=== PATIENT | male | born 1960 | race Caucasian/White ===

== ENCOUNTER 2018-01-31 10:40 | Day surgery (SDC) | payer OTHER, SELFPAY ==
[2018-01-24 10:45] VITALS: BMI 28.9
[2018-01-31] VITALS (8 sets, daily range): BP systolic 111–166; BP diastolic 64–98; PULSE 51–79; RESP 14–16; TEMP 36.1–36.7; O2SAT 16–100; BMI 28.9
[2018-01-31] MEDS: LACTATED RINGERS 1,000 ML 100 ML IV (12:11)
[2018-01-31] MEDS: CEFAZOLIN 2 GM/100 ML FROZ.PIGGY IV (13:04)
--- NOTE | 2018-01-31 13:05 | PM.PREOP ---
Pre-operative Note Interval Note Pre-op Check: Yes History & Physical Reviewed by Physician Changes: No
--- NOTE | 2018-01-31 13:20 | SUR.OPER ---
Supine on padded OR bed, head on pillow, arms secured on padded arm boards at <90 degrees abduction, legs uncrossed, safety belt at thigh, tape over blanket over lower legs.
[2018-01-31] MEDS: SODIUM CHLORIDE IRRIG SOLUTION 1,000 ML, CEFAZOLIN VIAL 1 GM IRR (13:31)
[2018-01-31] MEDS: LIDOCAINE 1% W/EPI INJ 20 ML INJ (13:32)
[2018-01-31] MEDS: BUPIVACAINE 0.5% (PF) VIAL 30 ML INJ (13:33)
--- NOTE | 2018-01-31 14:02 | PM.OP.1 ---
Operative Date/Time/Diagnoses Date of procedure: 01/31/18 Time of procedure: 14:02 Pre-op diagnosis: Left inguinal hernia Post-op diagnosis: same Procedure & Clinicians Procedure: Left inguinal hernia repair Same procedure as scheduled: Yes Indications: Painful and enlarging left inguinal hernia Surgeon: Hazel Kumar Click Yes if Unassisted: Yes Anesthesia Type: General (Anuj) and Local Operative Notes Findings: Large indirect left inguinal hernia Closure Type: primary Specimen(s): none sent Implants & Drains: Large Pro Loop plug and patch Estimated Blood Loss (mL): 10 Procedure in detail: After obtaining informed consent the patient was brought to the operating room and placed in the supine position on the operating table. Following successful induction of general endotracheal anesthesia, appropriate padding of all bony prominences, and a placement of appropriate monitors, the left groin is prepped and draped in a standard surgical fashion. A timeout was held per protocol. We began the procedure by infiltrating a mixture of local anesthetics medial to the anterior superior iliac spine on the left. Following this, an incision was fashioned in the left groin superior and lateral to the left pubic tubercle. This area was infiltrated with local anesthetic to create a field block. A skin incision was created here and carried down through the skin and subcutaneous tissue to reveal Nora's fascia below. Nora's fascia was divided sharply revealing the external oblique aponeurosis below. More local anesthetic was infiltrated in the aponeurosis and it was opened in the direction of its fibers. The spermatic cord and its contents were surrounded and retracted gently using a Demain drain. The hernia sac was identified in the superior medial position and carefully dissected free from the cord structures. The ileoinguinal nerve was identified stretched across the hernia sac itself. Fraying of the fibers in the distal portion of the nerve was noted. Due to this injury, we elected to divide the ilioinguinal nerve. This was done by clipping each end, tying it with a Vicryl suture, and dividing it centrally. The hernia sac was carefully placed back into the abdominal cavity without injury. A large portion of PROloop mesh was chosen for the repair. The plug was soaked in Ancef solution and deployed into the defect in the internal ring. This was sewn into place with interrupted Vicryl sutures in 2 positions. The overlying mesh layer was sewn to the pubic tubercle with an air knot of Vicryl suture. The lateral leaflets were then carefully placed around the spermatic cord and sewn together with another suture. Tags of the overlying mesh were then tucked under the external oblique aponeurosis. The wound was checked for hemostasis and irrigated with Ancef-containing solution. The edges of the external oblique aponeurosis were approximated and closed with a running Vicryl suture. The wound was irrigated once again and Nora's fascia was closed with a running suture. Monocryl sutures were placed in the skin. All sponge, needle, and instrument counts were correct at the conclusion of the case. The patient was allowed to awaken from anesthesia without difficulty and taken to the post anesthesia care unit in good condition. Complications: none Condition: stable Disposition: PACU Plan for aftercare: 1. Discharge to home 2. Follow up with me in 2 weeks
[2018-01-31] MEDS: fentaNYL 100 MCG/2 ML INJ 50 MCG IV (14:09)
[2018-01-31] MEDS: OXYCODONE/ACETAMINOPHEN 5/325 TABLET 1 TAB PO (14:24)
== END 2018-01-31 15:00 ==
LOC: OR 10:47
PROVIDERS: Visit Provider Surgery
PROC: (CPT 49505; principal; 2018-01-31 12:30)
DX: K40.90 Unilateral inguinal hernia, without obstruction or gangrene, not specified as recurrent (principal)
CPT/HCPCS: 49505; C1781; J0690; J1100; J2250; J2405; J2704; J3010

== ENCOUNTER 2021-07-26 13:28 | Emergency (ER) | payer OTHER, SELFPAY ==
[2021-07-26 13:33] VITALS: BP 130/89; PULSE 55; RESP 18; TEMP 36.8; O2SAT 100; BMI 29.8
--- NOTE | 2021-07-26 13:42 | DI.RAD.S_ITS ---
PROCEDURE: XR FOOT RT MIN 3V INDICATIONS: Right ankle pain, swelling and redness TECHNIQUE: 3 views of the foot were acquired. COMPARISON: None. FINDINGS: Bones: No acute, displaced fracture. Lzjh-[id number]-[id number] arthrosis of the 1st MTP and tarsometatarsal articulations. 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 Mild osteophytosis of the midfoot. Small calcaneal enthesophytes.. Soft tissues: No tibiotalar joint effusion. Vascular calcifications are seen. IMPRESSION: No acute osseous abnormality. Dictated by: Thomas Mooney M.D. on 07/26/2021 at 14:26 Approved by: Thomas Mooney M.D. on 07/26/2021 at 14:30
--- NOTE | 2021-07-26 13:42 | DI.RAD.S_ITS ---
PROCEDURE: XR ANKLE RT MIN 3V INDICATIONS: Right ankle pain, swelling and redness TECHNIQUE: 3 views of the ankle were acquired. COMPARISON: None. FINDINGS: Bones: No acute, displaced fracture. Ankle mortise is normally aligned. Ossific lesions about the medial and lateral malleoli, likely reflecting remote traumatic injuries. Os trigonum. Small calcaneal enthesophytes. Soft tissues: Trace tibiotalar joint effusion. Diffuse lower extremity edema. IMPRESSION: No acute, displaced fracture Dictated by: Thomas Mooney M.D. on 07/26/2021 at 14:30 Approved by: Thomas Mooney M.D. on 07/26/2021 at 14:32
--- NOTE | 2021-07-26 14:18 | DI.US.S_ITS ---
PROCEDURE: US PERIPH VENOUS LOW EXTREM RT INDICATIONS: EDEMA TECHNIQUE: Real-time imaging, as well as color and pulse Doppler interrogation, were performed of the lower extremity deep veins from the inguinal ligament to the popliteal fossa. COMPARISON: None. FINDINGS: The common femoral, femoral and popliteal veins are normally compressible, and free of intraluminal thrombus. Color and pulse Doppler demonstrate normal phasic intraluminal flow. There is normal augmentation response to distal compression maneuver. IMPRESSION: No evidence of DVT. Dictated by: Thomas Mooney M.D. on 07/26/2021 at 14:25 Approved by: Thomas Mooney M.D. on 07/26/2021 at 14:26
[2021-07-26 17:03] LABS: Add Manual Diff / Slide Review NO; Basophils Absolute Auto 0 /uL (0-100); Basophils Percent Auto 0.5 % (0-2); Eosinophils Absolute Auto 100 /uL (0-450); Eosinophils Percent Auto 1.4 % (2-4); Hematocrit 43.3 % (41-53); Hemoglobin 15.2 g/dL (13.5-17.5); Lymphocytes Absolute Auto 1500 /uL (1100-4500); Lymphocytes Percent Auto 21.1 % (25-40); Mean Corpuscular HGB Conc 35.1 % (30-36); Mean Corpuscular Hemoglobin 31.3 PG (26-34); Mean Corpuscular Volume 89.1 fL (80-100); Monocytes Absolute Auto 600 /uL (0-900); Monocytes Percent Auto 8.7 % (3-14); Neutrophils Absolute Auto 4800 /uL (1500-7000); Neutrophils Percent Auto 68.3 % (50-75); Platelet Count 252 X10^3/uL (150-400); Red Blood Cell Count 4.86 X10^6/uL (4.5-5.9); Red Cell Distribution Width 13.2 % (11.6-14.8); White Blood Cell Count 7.1 X10^3/uL (4.5-11.0)
[2021-07-26 17:17] LABS: Alanine Aminotransferase 27 IU/L (<50); Albumin 4.3 g/dL (3.5-5.0); Albumin Globulin Ratio 1.1 (1.0-2.8); Alkaline Phosphatase 88 U/L (38-126); Aspartate Aminotransferase 25 IU/L (17-59); BUN Creatinine Ratio 14.5 (6-22); Bilirubin Total 0.7 mg/dL (0.2-1.3); Blood Urea Nitrogen 12 mg/dL (9-20); Calcium 9.4 mg/dL (8.4-10.2); Carbon Dioxide 26 mmol/L (22-32); Chloride 103 mmol/L (98-107); Estimated Glomerular Filt Rate > 60.0 mL/min (>60); Globulin 3.9 g/dL (1.7-4.1); Glucose 104 mg/dL (70-100); HEMOLYSIS < 15 (0-50); Potassium 3.7 mmol/L (3.4-5.1); Sodium 137 mmol/L (137-145); Total Protein 8.2 g/dL (6.3-8.2); Uric Acid 5.4 mg/dL (3.5-8.5)
[2021-07-26 17:20] LABS: Erythrocyte Sedimentation Rate 44 MM/HR (0-15)
--- NOTE | 2021-07-26 19:05 | ED_ITS ---
HPI - Extremity Problem General Chief complaint: Extremity Problem,Nontraumatic Stated complaint: Poss blood clot in rt leg or gout- sent by [facility] Time Seen by Provider: 07/26/21 17:34 Source: patient Mode of arrival: Ambulatory Limitations: no limitations History of Present Illness HPI Narrative: This is a 61-year-old male who is sent by the walk-in clinic for concern for infection, blood clot or gout. Patient states he has had 4 days initially of some swelling followed by of redness that started over the talus in his right leg and since spread to the medial ankle and heel and is now extending up his leg and towards his toes. He states pain has also started to spread up his leg. He has had increasing swelling. Patient states he does have pain with ambulation. He has had some swelling in the past but not for this long and not the sort of symptoms. Patient did have fevers and chills for 2 nights. He denies any chest pain or shortness of breath. No nausea or vomiting. No other GI or urinary symptoms other than some mild constipation. He is not on a daily medications. He denies any prior surgeries. 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 He quit smoking at least 3 years ago, he does drink alcohol daily, no illicit. He is accompa nied by his . He does note he had a rash on the back of his calf several weeks ago which has not resolved but has not had any redness or irritation and appears to be healing. Related Data Previous Rx's Medication Instructions Recorded ondansetron 4 mg disintegrating 4 mg PO QID PRN #14 tab 01/31/18 tablet (Zofran ODT) oxycodone-acetaminophen 7.5 mg-325 1 tab PO Q6H PRN #20 tab MDD 4 01/31/18 mg tablet (Percocet) sulfamethoxazole 800 1 tab PO Q12H #20 tab 07/26/21 mg-trimethoprim 160 mg tablet (Bactrim DS) Allergies Allergy/AdvReac Type Severity Reaction Status Date / Time No Known Drug Allergies Allergy Verified 07/26/21 13:39 Review of Systems Review of Systems ROS Unobtainable: All systems reviewed & are unremarkable except as noted in HPI and below Patient History Family History Father Hypertension Diabetes mellitus Heart disease Social History marital status: household members: spouse, children and adopted family occupational status: employed Smoking Status: Former smoker alcohol intake: current substance use type: does not use Smoking Status: Former smoker alcohol intake frequency: 3 or more drinks per day Alcohol type: beer Substance Use Type: does not use Exam Narrative Exam Narrative: GENERAL: Alert and oriented x three, male in mild distress. HEENT: Head normocephalic, atraumatic, EOMI, pupils reactive, face symmetric, moist mucous membranes NECK: Supple, full range of motion CARDIOVASCULAR: Regular rate and rhythm without murmurs, rubs or gallops. RESPIRATORY: Breath sounds equal bilaterally, no wheezes rales or rhonchi. ABDOMEN: Soft, nontender. Normoactive bowel sounds all 4 quadrants. No guarding or rebound, rigidity, no mass EXTREMITIES: Normal range of motion, no clubbing. Positive right foot and ankle edema tracking [address] up the calf. Patient has erythema over the medial heel extending over the medial malleolus and dorsum of the foot and up 3rd of the calf. Patient has mild tenderness to palpation. No fluctuance or induration appreciated. Patient is neurovascularly intact. Cap refill less th an 2 seconds in all 5 toes. Patient has normal sensation to light touch. 2+ dorsalis pedis. NEUROLOGICAL: Cranial nerves II through XII grossly intact. Moving all extremities SKIN: Warm, dry, no petechiae, no rashes or lesions. Initial Vital Signs Initial Vital Signs: Vital Signs Temperature 98.3 F 07/26/21 13:33 Pulse Rate 55 L 07/26/21 13:33 Respiratory Rate 18 07/26/21 13:33 Blood Pressure 130/89 07/26/21 13:33 Pulse Oximetry 100 07/26/21 13:33 Course Orders Ordered: Discontinued Medications Trimethoprim/Sulfamethoxazole (Trimeth/Sulfa 160/800 (Ds) Tablet) 1 tab PO NOW ONE Stop: 07/26/21 19:18 Last Admin: 07/26/21 19:28 Dose: 1 tab Documented by: MARIA L Vital Signs Vital signs: Vital Signs - 8 hr 07/26/21 13:33 Temperature 98.3 F Pulse Rate 55 L Respiratory Rate 18 Blood Pressure 130/89 Pulse Oximetry 100 MDM - Extremity (Nontraumatic) Lab Data Result diagrams: 07/26/21 16:55 07/26/21 16:55 Labs: Lab Results 07/26/21 07/26/21 Range/Units 16:55 16:55 WBC 7.1 (4.5-11.0) X10^3/uL RBC 4.86 (4.5-5.9) X10^6/uL Hgb 15.2 (13.5-17.5) g/dL Hct 43.3 (41-53) % MCV 89.1 (80-100) fL MCH 31.3 (26-34) PG MCHC 35.1 (30-36) % RDW 13.2 (11.6-14.8) % Plt Count 252 (150-400) X10^3/uL Neut % (Auto) 68.3 (50-75) % Lymph % (Auto) 21.1 L (25-40) % Morton % (Auto) 8.7 (3-14) % Eos % (Auto) 1.4 L (2-4) % Baso % (Auto) 0.5 (0-2) % Neut # (Auto) 4800 (0698-6269) /uL Lymph # (Auto) 1500 (3629-8362) /uL Morton # (Auto) 600 (0-900) /uL Eos # (Auto) 100 (0-450) /uL Baso # (Auto) 0 (0-100) /uL ESR 44 H (0-15) MM/HR Sodium 137 (137-145) mmol/L Potassium 3.7 (3.4-5.1) mmol/L Chloride 103 (98-107) mmol/L Carbon Dioxide 26 (22-32) mmol/L BUN 12 (9-20) mg/dL Creatinine 0.83 (0.66-1.25) mg/dL Estimated GFR > 60.0 (>60) mL/min BUN/Creatinine Ratio 14.5 (6-22) Glucose 104 H (70-100) mg/dL Uric Acid 5.4 (3.5-8.5) mg/dL Calcium 9.4 (8.4-10.2) mg/dL Total Bilirubin 0.7 (0.2-1.3) mg/dL AST 25 (17-59) IU/L ALT 27 (<50) IU/L Alkaline Phosphatase 88 (38-126) U/L Total Protein 8.2 (6.3-8.2) g/dL Albumin 4.3 (3.5-5.0) g/dL Globulin 3.9 (1.7-4.1) g/dL Albumin/Globulin Ratio 1.1 (1.0-2.8) Imaging Data US - DVT: Radiologist's Impression: Launch?Image [address] [address] Ultrasound Report Signed Patient: Real Brock MR#: [id number] : 1960 Acct:[id number] Age/Sex: 61 / M Date of Service: 07/26/21 Loc: ED Accession Number: [id number] ?? Procedure: US periph venous low extrem rt Ordering Provider: Shereen Chatman D.O. PROCEDURE:? US PERIPH VENOUS LOW EXTREM RT ? INDICATIONS:? EDEMA ? TECHNIQUE:? Real-time imaging, as well as color and pulse Doppler interrogation, were performed of the lower extremity deep veins from the inguinal ligament to the popliteal fossa.? ? COMPARISON:? None. ? FINDINGS:? The common femoral, femoral and popliteal veins are normally compressible, and free of intraluminal thrombus.? Color and pulse Doppler demonstrate normal phasic intraluminal flow.? There is normal augmentation response to distal compression maneuver. ? ? IMPRESSION:? No evidence of DVT. ? ? Dictated by: Thomas Mooney M.D. on 07/26/2021 at 14:25 ? ? Approved by: Thomas Mooney M.D. on 07/26/2021 at 14:26 Extremity x-ray #1: Radiologist's Impression: [address] [address] XRay Report Signed Patient: Real Brock MR#: [id number] : 1960 Acct:[id number] Age/Sex: 61 / M Date of Service: 07/26/21 Loc: ED Accession Number: [id number] ?? Procedure: XR ankle RT min 3V Ordering Provider: Shereen Chatman D.O. PROCEDURE:? XR ANKLE RT MIN 3V ? INDICATIONS:? Right ankle pain, swelling and redness ? TECHNIQUE:? 3 views of the ankle were acquired.? ? COMPARISON:? None. ? FINDINGS:? ? Bones:? No acute, displaced fracture.? Ankle mortise is normally aligned.? Ossific lesions about the medial and lateral malleoli, likely reflecting remote traumatic injuries.? Os trigonum.? Small calcaneal enthesophytes. ? Soft tissues:? Trace tibiotalar joint effusion.? Diffuse lower extremity edema. ? IMPRESSION:? No acute, displaced fracture ? Dictated by: Thomas Mooney M.D. on 07/26/2021 at 14:30 ? ? Approved by: Thomas Mooney M.D. on 07/26/2021 at 14:32?? Extremity x-ray #2: Radiologist's Impression: Real Brock??61??M??1960 ? Allergy/Adv: No Known Drug Allergies (More??) Close Vascular Ultrasound (Signed) Thomas Mooney - 07/26/21 Foot X-Ray (Signed) Thomas Mooney - 07/26/21 Ankle X-Ray (Signed) Thomas Mooney - 07/26/21 Launch?[place] [address] XRay Report Signed Patient: Real Brock MR#: [id number] : 1960 Acct:[id number] Age/Sex: 61 / M Date of Service: 07/26/21 Loc: ED Accession Number: [id number] ?? Procedure: XR foot RT min 3V Ordering Provider: Shereen Chatman D.O. PROCEDURE:? XR FOOT RT MIN 3V ? INDICATIONS:? Right ankle pain, swelling and redness ? TECHNIQUE:? 3 views of the foot were acquired.? ? COMPARISON:? None. ? FINDINGS:? ? Bones:? No acute, displaced fracture.? Oxrz-uh-aqsmbyki arthrosis of the 1st MTP and tarsometatarsal articulations.? 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 Mild osteophytosis of the midfoot. Small calcaneal enthesophytes..? ? Soft tissues:? No tibiotalar joint effusion.? Vascular calcifications are seen.? ? ? IMPRESSION:? No acute osseous abnormality. ? ? Dictated by: Thomas Mooney M.D. on 07/26/2021 at 14:26 ? ? Approved by: Thomas Mooney M.D. on 07/26/2021 at 14:30?? MDM Narrative Medical decision making narrative: This is a 61 male who comes to the emergency department for redness, swelling from the walk-in clinic. Concern for DVT versus gout or infection. Patient's labs show elevated ESR, DVT ultrasound is negative with x-ray showing no acute changes. Patient's exam seems more consistent with cellulitis although he does drink alcohol regularly. Plans to take ibuprofen regularly for pain management and plan to start oral antibiotics. Return precautions discussed. Patient does not appear to be septic. All questions answered. Discharge Plan Departure Patient Disposition: Home Clinical Impression: Cellulitis Instructions: DI for Cellulitis -- Adult Activity Restrictions/Additional Instructions: Follow-up in the next 2-3 days for recheck if you have not had improvement. I would recommend decreasing your alcohol intake. Take antibiotics until completely gone. You may take ibuprofen up to 600 mg every 6 hours and/or Tylenol up to a 1000 mg every 8 hours. Prescription sent to [facility] in [place]. Please return for fevers, worsening redness, swelling, drainage or other new or concerning changes in her leg. Prescriptions: New sulfamethoxazole-trimethoprim [Bactrim DS] 800-160 mg tablet 1 tab PO Q12H Qty: 20 0RF No Action oxycodone-acetaminophen [Percocet] 7.5-325 mg tablet 1 tab PO Q6H MDD 4 PRN (Reason: pain) Qty: 20 0RF ondansetron [Zofran ODT] 4 mg tablet,disintegrating 4 mg PO QID PRN (Reason: nausea and vomiting) Qty: 14 0RF
[2021-07-26] MEDS: TRIMETH/SULFA 160/800 (DS) TABLET 1 TAB PO (19:28)
== END 2021-07-26 19:34 | disposition home or self-care (01) ==
PROVIDERS: Emergency Medicine; Emergency Provider Emergency Medicine
DX: L03.115 Cellulitis of right lower limb (principal)
CPT/HCPCS: 36415; 73610; 73630; 80053; 84550; 85025; 85651; 93971; 99283; 99284

== ENCOUNTER → 2024-11-13 09:06 | Outpatient (CLI) | payer OTHER, SELFPAY ==
[2024-11-13 09:52] LABS: Hematocrit 46.2 % (41-53); Hemoglobin 16.1 g/dL (13.5-17.5); Mean Corpuscular Hemoglobin 31.7 PG (26-34); Mean Corpuscular Volume 90.8 fL (80-100); Platelet Count 211 X10^3/uL (150-400); Red Blood Cell Count 5.09 X10^6/uL (4.5-5.9); Red Cell Distribution Width 13.1 % (11.6-14.8); White Blood Cell Count 4.1 X10^3/uL (4.5-11.0)
[2024-11-13 09:57] LABS: Hemoglobin A1C% w Est Avg Glu 7.6 % (4.0-6.0)
[2024-11-13 10:13] LABS: Alanine Aminotransferase 31 IU/L (<50); Albumin 4.7 g/dL (3.5-5.0); Albumin Globulin Ratio 1.6 (1.0-2.8); Alkaline Phosphatase 82 U/L (38-126); Aspartate Aminotransferase 26 IU/L (17-59); BUN Creatinine Ratio 14.1 (6-22); Bilirubin Total 0.9 mg/dL (0.2-1.3); Blood Urea Nitrogen 13 mg/dL (9-20); Calcium 9.8 mg/dL (8.4-10.2); Carbon Dioxide 24 mmol/L (22-32); Chloride 105 mmol/L (98-107); Cholesterol 276 mg/dL (140-199); Estimated Glomerular Filt Rate > 60 mL/min (>60); Globulin 2.9 g/dL (1.7-4.1); Glucose 171 mg/dL (70-99); HDL Cholesterol 51 mg/dL (40-60); HEMOLYSIS < 15 (0-50); LDL Cholesterol Calculated 201 mg/dL (<100); Potassium 4.5 mmol/L (3.4-5.1); Sodium 138 mmol/L (137-145); Total Protein 7.6 g/dL (6.3-8.2); Triglycerides 118 mg/dL (35-150)
[2024-11-13 10:16] LABS: HEMOLYSIS < 15 (0-50); Iron 133 ug/dL (49-181)
[2024-11-13 10:27] LABS: Percent Iron Saturation 39 % (20-50); Total Iron Binding Capacity 344 ug/dL (261-462); Transferrin 305 mg/dL (206-381)
[2024-11-13 10:41] LABS: Prostate Specific Antigen Scrn 1.94 ng/mL (0.1-4.0)
[2024-11-13 10:45] LABS: Ferritin 255 ng/mL (18-464)
[2024-11-13 11:00] LABS: Vitamin B12 Reflex MMA if <400 445 pg/mL (239-931)
[2024-11-13 13:05] LABS: Vitamin D 25 Hydroxy (D3) 32.6 ng/mL (30.0-100.0)
[2024-11-13 13:33] LABS: HIV 1 & 2 Ab/Ag 4th Gen Combo NEGATIVE (NEGATIVE); Hep C Virus Ab w/Reflex Quant NEGATIVE s/c (NEGATIVE)
== END ==
PROVIDERS: PCP Family Medicine; Referring Provider Family Medicine; Visit Provider Family Medicine
DX: Z12.5 Encounter for screening for malignant neoplasm of prostate (principal); E66.9 Obesity, unspecified; G62.9 Polyneuropathy, unspecified; Z13.228 Encounter for screening for other metabolic disorders; Z13.29 Encounter for screening for other suspected endocrine disorder; Z13.1 Encounter for screening for diabetes mellitus; Z11.59 Encounter for screening for other viral diseases; Z13.220 Encounter for screening for lipoid disorders; R53.83 Other fatigue; Z11.4 Encounter for screening for human immunodeficiency virus [HIV]
CPT/HCPCS: 36415; 80053; 80061; 82306; 82607; 82728; 83036; 83540; 83550; 84443; 85027; 86803; 87389; G0103

== ENCOUNTER → 2025-03-11 07:21 | Outpatient (CLI) | payer OTHER, SELFPAY ==
[2025-03-11 08:50] LABS: Hematocrit 43.1 % (41-53); Hemoglobin 15.5 g/dL (13.5-17.5); Mean Corpuscular HGB Conc 36.0 % (30-36); Mean Corpuscular Hemoglobin 31.4 PG (26-34); Mean Corpuscular Volume 87.3 fL (80-100); Platelet Count 241 X10^3/uL (150-400)
[2025-03-11 08:57] LABS: Hemoglobin A1C% w Est Avg Glu 7.3 % (4.0-6.0)
[2025-03-11 09:13] LABS: Cholesterol 134 mg/dL (140-199); HDL Cholesterol 43 mg/dL (40-60); Triglycerides 125 mg/dL (35-150)
== END ==
PROVIDERS: PCP Family Medicine; Referring Provider Family Medicine; Visit Provider Family Medicine
DX: E78.00 Pure hypercholesterolemia, unspecified (principal); E11.9 Type 2 diabetes mellitus without complications
CPT/HCPCS: 36415; 80061; 82043; 82570; 83036; 85027